=== PATIENT | female | born 1985 | race Two or more races ===

== ENCOUNTER 2019-01-03 15:44 | Emergency (ER) | payer SELFPAY ==
[~2019-01-03] VITALS: Ht 154.9 cm; Wt 74.8 kg
[2019-01-03 18:39] VITALS: BP 125/82
[2019-01-03] MEDS ORDERED: HYDROcodone-ACET 10/325MG TAB PO ONE (19:15)
== END 2019-01-03 20:09 | disposition home or self-care (01) ==
LOC: ER 15:53
DX: S90.32XA Contusion of left foot, initial encounter (principal); W22.8XXA Striking against or struck by other objects, initial encounter; Y93.89 Activity, other specified; Y99.8 Other external cause status; Y92.89 Other specified places as the place of occurrence of the external cause
CPT/HCPCS: 29515; 73620; 81025

== ENCOUNTER 2020-10-05 17:23 | Emergency (ER) | payer MEDICAID, OTHER ==
[~2020-10-05] VITALS: Ht 154.9 cm; Wt 84.8 kg
[2020-10-05 17:30] VITALS: BP 117/86
== END 2020-10-05 23:37 | disposition left against medical advice (07) ==
LOC: ER 17:23
DX: M25.572 Pain in left ankle and joints of left foot (principal); Z53.21 Procedure and treatment not carried out due to patient leaving prior to being seen by health care provider